=== PATIENT | male | born 2000 | race Two or more races ===

== ENCOUNTER 2024-12-05 19:20 | Emergency (ER) | payer MEDICAID, SELFPAY ==
[2024-12-05 19:21] VITALS: BMI 20.9
[2024-12-05 19:32] VITALS: BP 149/90; PULSE 71; RESP 18; TEMP 37.6; O2SAT 97
--- NOTE | 2024-12-05 19:40 | PD.EDRME ---
Rapid Medical Screening Exam RME Arrival date/time: 12/05/24 19:20 24M with no significant PMH presents to ED with feeling loopy after taking shrooms for the first time today. Patient denies SI/HI. Patient is worried about his GF who also took shrooms today. Chief Complaint: Overdose Time Seen by Provider: 12/05/24 19:40 Vital signs: Vital Signs Temperature 99.6 F 12/05/24 19:32 Pulse Rate 71 12/05/24 19:32 Respiratory Rate 18 12/05/24 19:32 Blood Pressure 149/90 H 12/05/24 19:32 Pulse Oximetry (%) 97 12/05/24 19:32 Oxygen Delivery Method Room Air 12/05/24 19:32
--- NOTE | 2024-12-06 01:17 | EDNOTE_ITS ---
ED General RME/HPI General Chief complaint: Overdose Stated complaint: Took Lots of Shrooms today Time Seen by Provider: 12/05/24 19:40 Arrival date/time: 12/05/24 19:20 24M with no significant PMH presents to ED with feeling loopy after taking shrooms for the first time today. Patient denies SI/HI. Patient is worried about his GF who also took shrooms today. Limitations: no limitations RME / HPI RME / HPI narrative: 12/05/24 19:20 24M with no significant PMH presents to ED with feeling loopy after taking shrooms for the first time today. Patient denies SI/HI. Patient is worried about his GF who also took shrooms today. Related Data Home Medications ?Medication ?Instructions ?Recorded ?Confirmed albuterol sulfate 90 mcg/actuation 2 puff inhalation Q 6HR PRN ASTHMA 11/18/15 aerosol inhaler (ProAir HFA) #0 inhalations Previous Rx's ?Medication ?Instructions ?Recorded omeprazole 40 mg capsule,delayed 40 mg PO QDAY #20 cap s 05/10/24 release Allergies Allergy/AdvReac Type Severity Reaction Status Date / Time No Known Allergies Allergy Verified 03/27/21 17:02 Review of Systems Review of Systems Systems Reviewed: All systems reviewed, normal except as documented Constitutional Constitutional: Reports system reviewed and no additional complaints, except as documented, Denies fever(s) and Denies headache(s) ENT Ears, Nose, Mouth, and Throat: Denies disequilibrium and Denies headache(s) Cardiovascular Cardiovascular: Reports system reviewed and no additional complaints, except as documented, Denies chest pain and Denies dyspnea Respiratory Respiratory: Reports system reviewed and no additional complaints, except as documented, Denies cough and Denies dyspnea Gastrointestinal Gastrointestinal: Reports system reviewed and no additional complaints, except as documented, Denies abdominal pain, Denies nausea and Denies vomiting Neurologic Neurologic: Reports system reviewed and no additional complaints, except as documented, Denies confusion, Denies disequilibrium and Denies headache(s) Psychiatric Psychiatric: Reports as per HPI, Denies confusion and Reports other ( feels loopy ) Past Medical History Social History SMOKING STATUS: Former smoker ED Exam General Limitations: Present no limitations General appearance: Present alert and in no apparent distress Head Head exam: Present atraumatic Eye Eye exam: Present normal appearance, PERRL and EOMI ENT ENT exam: Present normal exam, normal oropharynx and mucous membranes moist Neck Neck exam: Present normal inspection, full ROM and trachea midline Chest Chest inspection: Present normal inspection and symmetric chest wall rise Respiratory Respiratory exam: Present normal lung sounds bilaterally Cardiovascular Cardiovascular exam: Present regular rate, normal rhythm and normal heart sounds Abdominal Exam Abdominal exam: Present soft and normal bowel sounds Extremities Exam Extremities exam: Present normal inspection and full ROM Back Exam Back exam: Present normal inspection and full ROM Neurological Exam Neurological exam: Present alert, oriented X3 and CN II-XII intact Psychiatric Psychiatric exam: Present normal affect and normal mood Skin Skin exam: Present warm, dry, intact and normal color Course Course Course Narrative: 24M with no significant PMH presents to ED with feeling loopy after taking shrooms for the first time today. Patient denies SI/HI. Patient is worried about his GF who also took shrooms today. Physical exam reveals mildly dilated pupils, but normal EOM. Clear lungs. RRR. Patient is afebrile, mostly alert, but anxious. No negative changes after observation for 6 hours. Patient was just waiting for another patient in ED who also took shrooms for the first time today. Quality Measures none Vital Signs Vital signs: Vital Signs Temperature 99.6 F 12/05/24 19:32 Pulse Rate 71 12/05/24 19:32 Respiratory Rate 18 12/05/24 19:32 Blood Pressure 149/90 H 12/05/24 19:32 Pulse Oximetry (%) 97 12/05/24 19:32 Oxygen Delivery Method Room Air 12/05/24 19:32 O2 at 97% on RA and WNLs MDM Patient data External records reviewed:: [facility] previous records Clinical information provided by:: patient Social determinants that could affect healthcare access:: none Patient has the following chronic illnesses:: none How is presenting disease/condition affected by chronic disease/condition?: no chronic disease Evaluation data The following diagnostics were reviewed and interpreted by me:: other (specify) (none) Lab and/or radiology exams considered but not ordered:: not ordered Interpretation Summary: n/a Medications Medications considered but not ordered:: not ordered Medication administrations:: n/a Consultations Consultation(s) initiated? (list below): No Diagnosis Differential Diagnosis ED Complaint MDM: hallucinogenic mushrooms use, drug overdose, SI/HI Most likely diagnosis given after review of the tests above:: hallucinogenic mushrooms use Admission Indicated Admission indicated?: not indicated Explain why admission is indicated or not indicated:: outpatient Admission Request Was there a request for admission?: No Disposition Plan Disposition Plan: Discharge Discharge Attestation Discharge Attestation: The patient and all family members were given an opportunity to ask questions and understood the discharge instructions. Discharge instructions specifically effects, indications for sooner follow up or return to the emergency department, and the expected course of current diagnosis. Patient condition: Stable Medical Decision Making Differential Diagnosis Differential Diagnosis: hallucinogenic mushrooms use, drug overdose, SI/HI Discharge Plan Plan Patient Disposition: HOME (Self Care) Disposition Comment: Stable Prescriptions/Referrals Prescriptions/Med Rec: No Action albuterol sulfate [ProAir HFA] 8.5 GM HFA aerosol inhaler 2 puff Inhalation Q6HR PRN (Reason: ASTHMA) Qty: 0 omeprazole 40 mg capsule,delayed release(DR/EC) 40 mg PO QDAY Qty: 20 0RF Referrals: Lovely Bolaños PA-C [Primary Care Provider] - In 1 week Problem List Clinical Impression: Hallucinogenic mushrooms use disorder, mild Patient/Caregiver Discharge Instructions Additional Instructions: Please follow-up with PCP within 24-48 hours and return immediately if symptoms worsen. Stop doing drugs. Print Language: Hebrew Stand Alone Forms: Patient Portal Info Letter KAILEY/KENIA Supervising Physician GUME Supervising Physician: Dr. Milner
== END 2024-12-06 01:21 | disposition home or self-care (01) ==
PROVIDERS: Emergency Provider Emergency Medicine; PCP Physician Assistant
DX: F16.10 Hallucinogen abuse, uncomplicated (principal); Z87.891 Personal history of nicotine dependence
CPT/HCPCS: 99281